=== PATIENT | female | born 1960 | race Caucasian/White ===

== ENCOUNTER → 2017-10-04 | Outpatient (CLI) | payer OTHER ==
[~2017-10-04] MED LIST: AMLO5; CALCA400CH; COL-RITE50 MG; DULO30; Frova2.5 MG; MELATONIN3 MG; METO10; Neurontin 300300 MG; OLME20; OMEP20ER; ONDA4ODT; OXYACE5T; PROP60; PSYL5.85P; VITAMIN D-32000 UNIT
== END | disposition home or self-care (01) ==
LOC: LAB SHORT 10:45 → PLD 10:45
DX: D48.5 Neoplasm of uncertain behavior of skin (principal)
CPT/HCPCS: 88305

== ENCOUNTER 2021-07-19 09:07 | Emergency (ER) | payer OTHER ==
[~2021-07-19] VITALS: Ht 162.6 cm; Wt 74.8 kg
[~2021-07-19 09:07] MED LIST changes: -METO10; +METO10 PO; -OLME20; +OLME20 PO
[2021-07-19] MEDS ORDERED: EMGALITY120 MG/1 M SC (10:13)
[2021-07-19] MEDS ORDERED: PANT40 PO (10:15)
[2021-07-19 10:27] LABS: BASOPHILS ABSOLUTE AUTO 0.07 K/mm3 (0.00-0.23); BASOPHILS PERCENT AUTO 1 % (0-2); EOSINOPHILS ABSOLUTE AUTO 0.08 K/mm3 (0.00-0.68); EOSINOPHILS PERCENT AUTO 2 % (0-6); Hematocrit 39.5 % (33.0-51.0); Hemoglobin 13.5 g/dL (11.5-16.0); IMMATURE GRAN ABSOLUTE AUTO 0.01 K/mm3 (0.00-0.10); IMMATURE GRAN PERCENT AUTO 0 % (0-1); LYMPHOCYTES ABSOLUTE AUTO 1.35 K/mm3 (0.84-5.20); LYMPHOCYTES PERCENT AUTO 27 % (21-46); MONOCYTES ABSOLUTE AUTO 0.47 K/mm3 (0.16-1.47); MONOCYTES PERCENT AUTO 9 % (4-13); Mean Corpuscular HGB 30.8 pg (26.0-34.0); Mean Corpuscular HGB Conc 34.2 g/dL (31.5-36.5); Mean Corpuscular Volume 90 fL (80-100); NEUTROPHILS ABSOLUTE AUTO 3.02 K/mm3 (1.96-9.15); NEUTROPHILS PERCENT AUTO 60 % (41-73); Platelet Count 404 K/mm3 (150-400); RDW Coefficient Variation 12.6 % (11.7-14.2); RDW Standard Deviation 41.1 fL (35.1-46.3); Red Blood Cell Count 4.39 M/mm3 (3.80-5.20)
[2021-07-19 10:54] LABS: Alanine Aminotransfer (ALT/SGP 24 U/L (12-78); Albumin, Blood 3.9 g/dL (3.4-5.0); Alk Phos 86 U/L (50-136); Anion Gap 6 mmol/L (6-16); Aspartate Aminotrans (AST/SGOT 28 U/L (12-37); Blood Urea Nitrogen 10 mg/dL (8-24); Bun/Creatinine Ratio 11.1 (12.0-20.0); CO2, Blood 27 mmol/L (21-32); Chloride, Blood 106 mmol/L (98-108); Globulin, Blood 3.9 g/dL (2.2-4.0); Glomerular Filtration Rate >60 (60-); Glucose, Blood 111 mg/dL (70-99); Potassium, Blood 3.7 mmol/L (3.5-5.5); Sodium, Blood 139 mmol/L (136-145); Total Protein, Blood 7.8 g/dL (6.4-8.2); Troponin I <0.015 ng/mL (0.000-0.040)
== END 2021-07-19 11:47 | disposition home or self-care (01) ==
LOC: ER 09:07
PROVIDERS: Emergency Medicine
DX: U07.1 COVID-19 (principal); F41.9 Anxiety disorder, unspecified; K21.9 Gastro-esophageal reflux disease without esophagitis; G43.909 Migraine, unspecified, not intractable, without status migrainosus; Z87.891 Personal history of nicotine dependence; Z79.899 Other long term (current) drug therapy
CPT/HCPCS: 36415; 80053; 83880; 84484; 85025; 93005; 93010; 99283-25

== ENCOUNTER → 2021-07-25 | Outpatient (CLI) | payer OTHER ==
[~2021-07-25] MED LIST changes: +EMGALITY120 MG/1 M SC; +PANT40 PO
[2021-07-25 20:56] LABS: Adenovirus F 40/41 Not Detected (NOT DETECT); Astrovirus Not Detected (NOT DETECT); Campylobacter Sp Not Detected (NOT DETECT); Cryptosporidium Not Detected (NOT DETECT); Cyclospora Cayetanensis Not Detected (NOT DETECT); E. Coli O157 Not Detected (NOT DETECT); Entamoeba Histolytica Not Detected (NOT DETECT); Enteroaggregative E. coli-EAEC Not Detected (NOT DETECT); Enteropathogenic E. coli-EPEC Not Detected (NOT DETECT); Enterotoxigenic E. coli-ETEC Not Detected (NOT DETECT); Giardia Lamblia Not Detected (NOT DETECT); Norovirus GI/GII Not Detected (NOT DETECT); Plesiomonas Shigelloides Not Detected (NOT DETECT); Rotavirus A Not Detected (NOT DETECT); Salmonella Sp Not Detected (NOT DETECT); Sapovirus Not Detected (NOT DETECT); Shiga Toxin-prod E. coli-STEC Not Detected (NOT DETECT); Shigella/Enteroin E. coli-EIEC Not Detected (NOT DETECT); Vibrio Cholerae Not Detected (NOT DETECT); Vibrio Sp Not Detected (NOT DETECT); Yersinia Enterocolitica Not Detected (NOT DETECT)
== END ==
LOC: LAB SHORT 16:44
PROVIDERS: Physician Assistant
DX: R19.7 Diarrhea, unspecified (principal)
CPT/HCPCS: 0097U

== ENCOUNTER 2022-06-30 13:23 | Day surgery (SDC) | payer OTHER ==
[~2022-06-30] VITALS: Ht 160 cm; Wt 73.5 kg
== END 2022-06-30 15:47 | disposition home or self-care (01) ==
LOC: ORSCSDS 13:23
PROVIDERS: Surgery
PROC: 0DJD8ZZ Inspection of Lower Intestinal Tract, Via Natural or Artificial Opening Endoscopic (ICD-10-PCS; principal; 2022-06-30 15:30)
DX: Z12.11 Encounter for screening for malignant neoplasm of colon (principal); I10 Essential (primary) hypertension; K21.9 Gastro-esophageal reflux disease without esophagitis; K58.9 Irritable bowel syndrome, unspecified; E78.5 Hyperlipidemia, unspecified; Z79.82 Long term (current) use of aspirin; Z79.899 Other long term (current) drug therapy
CPT/HCPCS: J0330; J0461; J2405; J2704; J7120; Q9968